=== PATIENT | male | born 1990 | race Caucasian/White ===

== ENCOUNTER 2023-02-02 18:15 | Emergency (ER) | payer OTHER ==
[~2023-02-02] VITALS: Ht 193 cm; Wt 113.4 kg
[2023-02-02 18:36] VITALS: BP_SYST 130; PULSE 69; RESP 16; TEMP 97.7; O2SAT 98
[2023-02-02 19:58] LABS: BASOPHILS % (AUTO) 0.4 % (0.0-2.0); EOSINOPHILS # (AUTO) 0.2 K/uL (0.0-0.4); EOSINOPHILS % (AUTO) 4.7 % (0.0-4.0); HEMATOCRIT 41.8 % (36-54); HEMOGLOBIN 13.6 g/dL (14.0-18.0); LYMPHOCYTES # (AUTO) 1.4 K/uL (1.0-5.5); LYMPHOCYTES % (AUTO) 27.3 % (20.5-51.5); MEAN CORPUSCULAR HEMOGLOBIN 28 pg (27-31); MEAN CORPUSCULAR HGB CONC 33 % (32-36); MEAN CORPUSCULAR VOLUME 86 fL (79.0-98.0); MONOCYTES # (AUTO) 0.5 K/uL (0.0-1.0); MONOCYTES % (AUTO) 10.1 % (1.7-9.3); NEUTROPHILS # (AUTO) 2.9 K/uL (1.8-7.7); NEUTROPHILS % (AUTO) 57.5 % (40.0-70.0); PLATELET COUNT (AUTO) 266 K/uL (130-430); RED BLOOD CELL COUNT(AUTO) 4.86 MIL/uL (4.2-6.2); RED CELL DISTRIBUTION WIDTH 12.7 % (9.0-15.0)
[2023-02-02 20:11] LABS: CALCIUM 9.1 mg/dL (8.4-11.0); CREATININE 1.01 mg/dL (0.55-1.30); POTASSIUM 3.9 mmol/L (3.5-5.1)
[2023-02-02 20:16] LABS: ALBUMIN 3.6 g/dL (3.4-4.8); TOTAL BILIRUBIN 0.2 mg/dL (0.0-1.0); TOTAL PROTEIN, SERUM 7.2 g/dL (6.4-8.3)
[2023-02-03 00:43] VITALS: BP_SYST 136; PULSE 74; RESP 18; TEMP 97.7; O2SAT 96
== END 2023-02-03 00:43 | disposition home or self-care (01) ==
LOC: SED 18:15
DX: M79.662 Pain in left lower leg (principal); R20.2 Paresthesia of skin; M43.26 Fusion of spine, lumbar region; R22.42 Localized swelling, mass and lump, left lower limb; Z79.899 Other long term (current) drug therapy
CPT/HCPCS: 99285; 72132; 93970; 80053; 85025; 36415; 76376; Q9967

== ENCOUNTER 2023-08-06 15:50 | Emergency (ER) | payer BC, OTHER ==
[~2023-08-06] VITALS: Ht 193 cm; Wt 115.7 kg
[2023-08-06 15:55] VITALS: BP_SYST 135; PULSE 60; RESP 18; TEMP 98.3; O2SAT 100
[2023-08-06] MEDS: ONDANSETRON 4 MG ODT TAB PO ONE (16:16)
[2023-08-06 16:33] LABS: HEMATOCRIT 46.5 % (36-54); HEMOGLOBIN 15.8 g/dL (14.0-18.0); MEAN CORPUSCULAR HEMOGLOBIN 29 pg (27-31); MEAN CORPUSCULAR HGB CONC 34 % (32-36); MEAN CORPUSCULAR VOLUME 86 fL (79.0-98.0); PLATELET COUNT (AUTO) 198 K/uL (130-430); RED BLOOD CELL COUNT(AUTO) 5.43 MIL/uL (4.2-6.2); RED CELL DISTRIBUTION WIDTH 14.2 % (9.0-15.0); WHITE BLOOD COUNT (AUTO) 10.6 K/uL (4.8-10.8)
[2023-08-06] MEDS: PANTOPRAZOLE SODIUM 40 MG TAB PO ONE (16:33)
[2023-08-06 16:47] LABS: BAND % (MANUAL) 8 % (0-6); EOSINOPHILS % (MANUAL) 6 % (0-7); LYMPHOCYTES % (MANUAL) 7 % (20-46); MONOCYTES % (MANUAL) 5 % (0-11)
[2023-08-06 16:48] LABS: BASOPHILS % (MANUAL) 0 % (0-2); PLATELET ESTIMATE ADEQUATE (ADEQUATE)
[2023-08-06 16:52] LABS: ALANINE AMINOTRANSFERASE 21 U/L (12-78); ALBUMIN 3.8 g/dL (3.4-4.8); AMYLASE 135 U/L (0-100); ANION GAP 9 (5-15); ASPARTATE AMINOTRANSFERASE 8 U/L (10-37); BILIRUBIN,DIRECT 0.1 mg/dL (0.0-0.3); CALCIUM 8.8 mg/dL (8.4-11.0); CARBON DIOXIDE 30 mmol/L (23-29); CHLORIDE 101 mmol/L (98-107); CREATININE 1.39 mg/dL (0.55-1.30); GFR AFRICAN AMERICAN 75 mL/min (>90); GLUCOSE 92 mg/dL (74-106); LIPASE 289 U/L (16-77); POTASSIUM 3.7 mmol/L (3.5-5.1); SODIUM SERUM 140 mmol/L (136-145); TOTAL BILIRUBIN 0.6 mg/dL (0.0-1.0); TOTAL PROTEIN, SERUM 6.9 g/dL (6.4-8.3); UREA NITROGEN, BLOOD 20 mg/dL (8-21)
[2023-08-06 16:56] LABS: BILIRUBIN,URINE NEGATIVE (NEGATIVE); BLOOD, URINE NEGATIVE (NEGATIVE); CLARITY/URINE CLEAR (CLEAR); COLOR,URINE YELLOW (YELLOW); GLUCOSE,URINE NEGATIVE (NEGATIVE); KETONES,URINE 3+ (NEGATIVE); LEUKOCYTE ESTERASE ,URINE NEGATIVE (NEGATIVE); NITRITE, URINE NEGATIVE (NEGATIVE); PROTEIN URINE 1+ (NEGATIVE); UROBILINOGEN,URINE 0.2 (0.2-1.0)
[2023-08-06 17:01] LABS: GFR NON AFRICAN-AMERICAN 62 mL/min (>90)
[2023-08-06 17:03] LABS: BACTERIA,URINE RARE /HPF (None Seen); MUCUS,URINE 1+ /LPF (None Seen); RBC,URINE NONE SEEN /HPF (0-3); WBC,URINE 0-3 /HPF (0-3)
[2023-08-06 17:27] LABS: ACETONE, SERUM NEGATIVE (NEGATIVE)
[2023-08-06] MEDS ORDERED: ONDA-8 TL (17:44)
[2023-08-06] MEDS ORDERED: OMEP20CA15 PO (17:44)
[2023-08-06] MEDS ORDERED: IBUP-1971 PO (17:44)
[2023-08-06 17:54] VITALS: BP_SYST 135; PULSE 60; RESP 18; TEMP 98.3; O2SAT 100
== END 2023-08-06 17:53 | disposition home or self-care (01) ==
LOC: SED 15:50
DX: A05.9 Bacterial foodborne intoxication, unspecified (principal); Z88.2 Allergy status to sulfonamides
CPT/HCPCS: 99284; 74176; 85027; 80076; 80048; 81001; 82009; 82150; 83690; 85007; 36415; 83605; 82397; Q0162; 81000; 81015